=== PATIENT | female | born 1960 | race Caucasian/White ===

== ENCOUNTER 2017-01-04 09:07 | Outpatient (CLI) ==
[2017-01-04 09:37] LABS: BASOPHILS # (AUTO) 0.1 K/uL (0-0.2); BASOPHILS % (AUTO) 0.7 % (0.0-3.0); EOSINOPHILS # (AUTO) 0.4 K/ul (0.0-0.7); EOSINOPHILS % (AUTO) 4.5 % (0.0-7.0); HEMATOCRIT 43.8 % (37.0-47.0); HEMOGLOBIN 14.8 g/dl (12.0-16.0); IMMATURE GRANULOCYTE % (AUTO) 0.2 % (0.0-5.0); LYMPHOCYTES # (AUTO) 3.4 K/uL (0.60-3.4); LYMPHOCYTES % (AUTO) 39.8 (10.0-50.0); MEAN CORPUSCULAR HEMOGLOBIN 29.4 pg (27.0-31.0); MEAN CORPUSCULAR HGB CONC 33.8 (31.8-35.4); MEAN CORPUSCULAR VOLUME 87.1 fl (81.0-99.0); MONOCYTES # (AUTO) 0.5 K/uL (0.4-2.0); NEUTROPHILS # (AUTO) 4.2 K/ul (2.0-6.9); NEUTROPHILS % (AUTO) 48.8; PLATELET COUNT 323 10^3/uL (140-440); RED BLOOD COUNT 5.03 10^6/ul (4.20-5.40); WHITE BLOOD COUNT 8.52 K/ul (4.6-10.2)
--- NOTE | 2017-01-04 09:45 | DI ---
EXAM: Three views of the left ribs HISTORY: Left rib pain. COMPARISON: Chest x-ray 04/17/2011 FINDINGS: There is no lytic or blastic lesion of the left ribs. There is no cortical irregularity o r displaced fracture. There are surgical clips in right upper quadrant infusion hardware in the cer vical spine. The lungs are clear. IMPRESSION: No acute abnormality or displaced fracture of the left ribs.
[2017-01-04 10:14] LABS: ALBUMIN 3.8 g/dL (3.4-5.0); ALBUMIN/GLOBULIN RATIO 0.93; ANION GAP 12.8; BILIRUBIN,TOTAL 0.56 mg/dL (0.00-1.20); BUN/CREATININE RATIO 18.62; CALCIUM 9.8 mg/dL (8.2-10.2); CHOL/HDL RATIO 2.4 (4.5-5.5); CREATININE 1.02 mg/dL (0.60-1.30); POTASSIUM 3.8 mmol/L (3.5-5.10); TOTAL PROTEIN 7.9 g/dL (6.4-8.2)
== END 2017-01-04 09:08 | disposition home or self-care (01) ==
LOC: RAD 09:07
PROVIDERS: ATTEND Emergency Medicine
DX: E78.5 Hyperlipidemia, unspecified (principal); I10 Essential (primary) hypertension; F41.1 Generalized anxiety disorder; R07.81 Pleurodynia
CPT/HCPCS: 36415; 80053; 80061; 84443; 85025

== ENCOUNTER 2017-12-08 10:37 | Outpatient (CLI) | END 2017-12-08 10:38 | disposition home or self-care (01) | LOC: LAB 10:37 | PROVIDERS: ATTEND Internal Medicine | DX: E78.5 Hyperlipidemia, unspecified (principal); I10 Essential (primary) hypertension; F32.9 Major depressive disorder, single episode, unspecified | CPT/HCPCS: 36415; 80053; 80061; 83036; 84443; 85025 ==

== ENCOUNTER 2018-04-25 08:43 | Outpatient (CLI) ==
--- NOTE | 2018-04-25 09:16 | DI ---
EXAM: Two views of the chest. History: Cough. Comparison: Chest radiograph 07/11/2015 Findings: Heart size is normal. Mild left lower lobe infiltrate. No appreciable pleural fluid and n o pneumothorax. No acute osseous abnormalities. Postsurgical changes of the cervical spine. Impression: Mild left lower lobe infiltrate
--- NOTE | 2018-04-26 09:22 | MAMMO ---
EXAM: Bilateral digital screening mammogram (2-D and 3-D) History: Screening Comparison: Bilateral mammogram 09/06/2014 Findings: MLO and CC views of bilateral breasts demonstrate scattered fibroglandular breast parenchy ma. CAD was reviewed by the radiologist. Tomosynthesis was performed. Stable benign bilateral axil luis alfredo lymph nodes. There is an area of architectural distortion within the upper-outer quadrant of the right breast best seen on tomosynthesis. No suspicious microcalcifications. Impression: Indeterminate area of architectural distortion in the upper-outer quadrant of the right breast. Recommend further evaluation with spot compression views with tomosynthesis and possible ult rasound. BIRADS 0
== END 2018-04-25 08:44 | disposition home or self-care (01) ==
LOC: RAD 08:43
PROVIDERS: ATTEND Internal Medicine
DX: Z12.31 Encounter for screening mammogram for malignant neoplasm of breast (principal); R05 Cough
CPT/HCPCS: 77067

== ENCOUNTER 2018-05-03 09:51 | Outpatient (CLI) ==
--- NOTE | 2018-05-03 10:59 | MAMMO ---
EXAM: Digital diagnostic mammogram with tomosynthesis HISTORY: Abnormal mammogram COMPARISON: 04/25/2018 FINDINGS: Digital spot compression MLO and CC views of the right breast were performed. Tomosynth esis was performed. There are scattered fibroglandular densities. There is no evidence for mass, asy mmetry, distortion, or suspicious calcifications in the right breast. IMPRESSION: 1. No evidence of malignancy in the right breast. 2. Annual screening mammogram is recommended in one year. BIRADS category 1, negative examination
== END 2018-05-03 09:52 | disposition home or self-care (01) ==
LOC: RAD 09:51
PROVIDERS: ATTEND Internal Medicine
DX: R92.8 Other abnormal and inconclusive findings on diagnostic imaging of breast (principal)

== ENCOUNTER 2023-05-01 19:58 | Inpatient (IN) ==
[2023-05-01 20:11] VITALS: BMI 25.2
[2023-05-01 20:32] LABS: BASOPHILS % (AUTO) 0.3 % (0.0-3.0); EOSINOPHILS # (AUTO) 0.1 K/ul (0.0-0.7); EOSINOPHILS % (AUTO) 0.4 % (0.0-7.0); HEMATOCRIT 44.4 % (37.0-47.0); HEMOGLOBIN 15.1 g/dl (12.0-16.0); IMMATURE GRANULOCYTE # (AUTO) 0.1 (0.0-1.0); IMMATURE GRANULOCYTE % (AUTO) 0.4 % (0.0-5.0); LYMPHOCYTES # (AUTO) 1.8 K/uL (0.60-3.4); LYMPHOCYTES % (AUTO) 13.5 (10.0-50.0); MEAN CORPUSCULAR HEMOGLOBIN 30.4 pg (27.0-31.0); MEAN CORPUSCULAR VOLUME 89.3 fl (81.0-99.0); MONOCYTES # (AUTO) 0.6 K/uL (0.4-2.0); MONOCYTES % (AUTO) 4.7 (0-10); NEUTROPHILS # (AUTO) 10.9 K/ul (2.0-6.9); NEUTROPHILS % (AUTO) 80.7 % (42.2-75.2); PLATELET COUNT 298 10^3/uL (140-440); RDW COEFFICIENT OF VARIATION 12.5 % (11.6-14.8); RED BLOOD COUNT 4.97 10^6/ul (4.20-5.40); WHITE BLOOD COUNT 13.49 K/ul (4.6-10.2)
[2023-05-01 20:39] LABS: ALANINE AMINOTRANSFERASE 235.3 U/L (0-35); ALBUMIN 4.69 g/dL (3.5-5.0); ALKALINE PHOSPHATASE 203.6 U/L (53-141); ASPARTATE AMINO TRANSFERASE 224.2 U/L (14-36); BILIRUBIN,TOTAL 1.04 mg/dL (0.2-1.3); BLOOD UREA NITROGEN 16.9 mg/dL (7-17); CALCIUM 9.64 mg/dL (8.4-10.2); CARBON DIOXIDE 26.3 mmol/L (22-30.0); CHLORIDE 101.5 mmol/L (98-107); CREATININE 0.81 mg/dL (0.60-1.30); GLUCOSE 123.9 mg/dL (74-106); POTASSIUM 4.01 mmol/L (3.5-5.1); SODIUM 134.5 mmol/L (134.5-145)
[2023-05-01] MEDS ORDERED: ASPIRIN CHEWABLE PO STA (20:42)
--- NOTE | 2023-05-01 20:42 | ED.PDOC ---
General ED Provider: Dr. KRISTA GREEN, Chief Complaint: Chest Pain Stated Complaint: Patient is a 62 yo F here for chest pain Patient arrives afebrile and vitally stable by POV with family Seen here yesterday for chest pain, negative cardiac work up, no PE, CTA chest shows RML opneumonia VS mass, given augmentin and azithromycin by Dr. Wilcox and PCP follow up for PET scan in three months Lesia reports she has no improvement Patihossein has outdated cardiac work up Last echo LVEF 60% in 202. No hx of ACS Non smoker Patient stable No falls, no injuires no recent surgeries. PCP Dr. Chao, Loop recorder palced this year by Dr. Gates Time Seen by Provider: 05/01/23 20:07 Information Source: Patient and Family Primary Care Provider: TEJAS CHAO MD Nursing and Triage Documentation Reviewed and Agree: Yes Does patient meet sepsis criteria?: No System Inflammatory Response Syndrome: Not Applicable Sepsis Protocol: For patient's 13 years and over: Temp is 96.8 and below OR 101 and greater Pulse >90 BPM Resp >20/minute Acutely Altered Mental Status Are patient's symptoms suggestive of a new infection, such as: -Pneumonia -Skin, Soft Tissue -Endocarditis -UTI -Bone, Joint Infection -Implantable Device -Acute Abdominal Infection -Wound Infection -Meningitis -Blood Stream Catheter Infection -Unknown Review of Systems Review Of Systems Constitutional: Denies Chills, Diaphoresis, Fever or Malaise Eyes: Denies Blindness, Vision change or Drainage Ears, Nose, Mouth, Throat: Denies Ear pain, Ear discharge or Nose pain Respiratory: Denies Cough, Shortness of Breath or Stridor Cardiac: Reports Chest pain; Denies Irregular heart rate, Lightheadedness or Palpitations GI: Reports Abdomen distended; Denies Blood streaked bowels or Constipated : Denies Burning, Dysuria or Discharge Musculoskeletal: Denies Back pain or Joint pain Skin: Denies Bruising or Change in color Neurological: Reports No symptoms Endocrine: Reports No symptoms Hematologic/Lymphatic: Reports No symptoms All Other Systems: Reviewed and Negative [facility] Medical History (Updated 05/01/23 @ 22:56 by SAE CAST RN) Adjacent segment disease of lumbar spine with history of fusion procedure M51.36 - Other intervertebral disc degeneration, lumbar region (ICD-10) Z98.1 - Arthrodesis status (ICD-10) Fibromyalgia M79.7 - Fibromyalgia (ICD-10) Hx of migraine headaches Z86.69 - Personal history of other diseases of the nervous system and sense organs (ICD-10) Implantable loop recorder present Z95.818 - Presence of other cardiac implants and grafts (ICD-10) Palpitations R00.2 - Palpitations (ICD-10) Family History FATHER Healthy male adolescent Mother Dementia Social History Smoking and tobacco status: Former smoker Tobacco: How many years used: 18 Alcohol intake: current Alcohol intake frequency: holidays/special occasions only Substance use type: does not use Tonia/druze: MORAVIAN Special tonia needs: No Agree to transfusion: Yes Adopted: No Foster care: No Household members: none Housing: apartment Marital status: S SINGLE Lives independently: Yes Number of children: 5 service: No Current occupational status: employed Current occupation: [employer] History of recent travel: No Sexually active: No Do you think of yourself as: straight/heterosexual Current gender identity: female Seatbelt use: always Drives intoxicated or rides with intoxicated local company hazmat driver: No Water heater temperature set < 120 degrees: Yes Working smoke detector in home: Yes Fire extinguisher in home: Yes Carbon monoxide detector in home: Yes Firearms in home: No Surgical History Deformity, chest wall, 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 - Other congenital deformities of chest (ICD-10) Endometriosis determined by laparoscopy N80.9 - Endometriosis, unspecified (ICD-10) H/O total hysterectomy Z90.710 - Acquired absence of both cervix and uterus (ICD-10) History of Z98.891 - History of uterine scar from previous surgery (ICD-10) History of dilatation and curettage Z98.890 - Other specified postprocedural states (ICD-10) S/P cholecystectomy Z90.49 - Acquired absence of other specified parts of digestive tract (ICD- 10) Tubal ectopic O00.109 - Unspecified tubal without intrauterine (ICD- 10) Female Reproductive History Menstrual Hx Hysterectomy: Yes Hx Tubal Ligation: No Physical Exam Physical Exam Appearance: Reports Well-appearing, No pain distress and Well-nourished Ill-appearing: Not Applicable Pain Distress: Mild Eyes: Reports SUSHILA, EOMI and Conjunctiva clear ENT: Reports Ears normal, Nose normal and Oropharynx normal Neck: Supple Respiratory: Reports Airway patent and Breath sounds clear; Denies Wheezes or Retractions Cardiovascular: Reports RRR and Pulses normal; Denies No rub GI/: Reports Soft and Nontender; Denies Tender Musculoskeletal: Reports Normal strength, ROM intact and No edema Skin: Reports Warm, Dry and Normal color Neurological: Reports Sensation intact and Motor intact Psychiatric: Reports Affect appropriate and Mood appropriate Interpretation EKG Interpretation EKG Interpretation By: ED Physician Time of EKG #1: 20:18 Rate: Normal Rhythm: Sinus Ectopy: None [place]: NL ST Segment: Normal Interpretation: NSR rate 74, no stemi, no qt prolongation Critical Care Note Critical Care Note Total Critical Care Time (mins): 0 Course Course 05/01/23 20:25 05/01/23 20:25 Orders, Labs, Meds: Lab Review 05/01/23 05/01/23 05/01/23 19:10 19:25 20:25 WBC 13.49 H RBC 4.97 Hgb 15.1 Hct 44.4 MCV 89.3 MCH 30.4 MCHC 34.0 RDW Coeff of Santana 12.5 Plt Count 298 Immature Gran % (Auto) 0.4 Neut % (Auto) 80.7 H Lymph % (Auto) 13.5 [place] % (Auto) 4.7 Eos % (Auto) 0.4 Baso % (Auto) 0.3 Neut # (Auto) 10.9 H Lymph # (Auto) 1.8 [place] # (Auto) 0.6 Eos # (Auto) 0.1 Baso # (Auto) 0.0 Immature Gran # (Auto) 0.1 Sodium 134.5 Potassium 4.01 Chloride 101.5 Carbon Dioxide 26.3 Anion Gap 10.71 BUN 16.9 Creatinine 0.81 Estimated GFR (MDRD) 72.00 BUN/Creatinine Ratio 20.86 Glucose 123.9 H Lactic Acid 1.02 Calcium 9.64 Total Bilirubin 1.04 AST 224.2 H D ALT 235.3 H D Alkaline Phosphatase 203.6 H D Troponin I < 0.012 Total Protein 8.10 Albumin 4.69 Globulin 3.41 Albumin/Globulin Ratio 1.37 Plasma/Serum Alcohol < 10.0 Orders Category Date Time Status OBSERVATION [PLACE PATIENT OBSERVATION] .TO MEDSURG ADMISSION 05/01/23 22:18 Active (MONITORED BED) EKG-(ED ONLY) Stat CARDIO 05/01/23 20:03 Completed NPO REMINDER: IMAGING ONCE CARE 05/01/23 21:12 Active TELEMETRY MONITORING TELE CARE 05/01/23 22:18 Active CODE [ED CODE STATUS] .ONCE EMERGENCY 05/01/23 22:18 Active CBC W/ AUTO DIFF Stat LAB 05/01/23 20:25 Completed CBC W/ AUTO DIFF Timed LAB 05/02/23 06:00 Ordered CMP [COMPREHENSIVE METABOLIC PANEL] Timed LAB 05/02/23 06:00 Ordered COMPREHENSIVE METABOLIC PANEL Stat LAB 05/01/23 20:25 Completed ETOH LEVEL [BLOOD ALCOHOL] Stat LAB 05/01/23 19:10 Completed LACTIC ACID Stat LAB 05/01/23 19:25 Completed TROPONIN I Stat LAB 05/01/23 20:25 Completed Aspirin [Aspirin Chewable] Meds 05/01/23 20:42 Discontinued 324 mg PO ONCE STA Dicyclomine HCl [Bentyl] Meds 05/01/23 21:12 Discontinued 20 mg IM ONCE ONE Enoxaparin Sodium [Lovenox] Meds 05/01/23 22:14 Discontinued 40 mg SUBCUT ONCE ONE Ondansetron HCl/Pf [Zofran 4 mg/2 ml] Meds 05/01/23 22:16 Active 4 mg IVP 3-4XD PRN CT ABDOMEN/PELVIS W CONTRAST Stat RADS 05/01/23 21:12 Completed Medications Generic Name Dose Route Start Last Admin Trade Name Freq PRN Reason Stop Dose Admin Cyclobenzaprine HCl 10 mg 05/01/23 23:01 Cyclobenzaprine Hcl 10 Mg Tablet PO QAM PRN MUSCLE SPASMS Duloxetine HCl 60 mg 05/01/23 23:30 Duloxetine Hcl 30 Mg Capsule.Dr PO DAILY FELICITAS Lorazepam 1 mg 05/01/23 23:01 Lorazepam 1 Mg Tablet PO BID PRN Anxiety Metoprolol Succinate 50 mg 05/01/23 23:29 Metoprolol Succinate 50 Mg Tab.Er.24h PO DAILY [facility] Ondansetron HCl 4 mg 05/01/23 22:16 Ondansetron Hcl/Pf 4 Mg/2 Ml Sdv IVP 3-4XD PRN Nausea / Vomiting Promethazine HCl 25 mg 05/01/23 23:01 Promethazine Hcl 25 Mg Tablet PO Q6H PRN Nausea / Vomiting Discontinued Medications Generic Name Dose Route Start Last Admin Trade Name Roxana PRN Reason Stop Dose Admin Aspirin 324 mg 05/01/23 20:42 05/01/23 20:51 Aspirin 81 Mg Tab.Chew PO 05/01/23 20:43 324 mg ONCE STA Administration Dicyclomine HCl 20 mg 05/01/23 21:12 05/01/23 21:39 Dicyclomine Hcl 20 Mg/2 Ml Vial IM 05/01/23 21:13 20 mg ONCE ONE Administration Enoxaparin Sodium 40 mg 05/01/23 22:14 Enoxaparin Sodium 40 Mg/0.4 Ml Syr SUBCUT 05/01/23 22:15 ONCE ONE Lorazepam 1 mg 05/01/23 22:30 Lorazepam 1 Mg Tablet PO 05/01/23 22:31 ONCE STA Vital Signs: Temp Pulse Resp BP Pulse Ox 05/01/23 20:07 99.4 F 83 16 155/94 H 95 Unexpected transaminitis pending ct abd study, trial Bentyl, possible hepatic inflammation from recent Augmentin azithromycin course started yesterday MDM: Patient is a 62 yo F here for persistent chest pain Patient afebrile and vitally stable Patient seen here less than 24 hours ago, negative trop x2, similar ekg to previous, CTA chest shows no PE, RML mass vs pneumonia Exam reassuring Hx from patient chart review by me Consults to Dr. Chao - with repeat visit and no improvement will admit monitor and trend troponins, he will obs patient Patient amenable to plan Patient given aspirin She was requesting Dilaudid by name concerned for anxiety At this point I declined to give Dilaudid, it does not appear to be indicated WDX: Chest pain unknown etiology, leukocytosis, CAP, RML mass vs consolidation acute condition moderate complexity DDX: I considered ACS, PE, sepsis, but with recent negative work up these seem less likely SDOH: Patient has PCP and family support, will improve with observation All questions answered Patient placed on observation status EMILY Risk Score EMILY Risk Score: Risk Score Odds of by 30D 0 0.1 (0.1-0.2) 1 0.3 (0.2-0.3) 2 0.4 (0.3-0.5) 3 0.7 (0.6-0.9) 4 1.2 (1.0-1.5) 5 2.2 (1.9-2.6) 6 3.0 (2.5-3.6) 7 4.8 (3.8-6.1) Discharge Plan Discharge Patient Disposition: PLACED OBSERVATION Discharge Problem: Chest pain of unknown etiology, Leukocytosis, Lung mass, Pneumonia, Hepatitis, Lung nodule Did you review [place] DISTRIBUTING CLERK for ALL controlled substances?: Not Applicable ED Provider: KRISTA GREEN Condition: Fair Physician Progress Note: []
[2023-05-01 21:08] LABS: TROPONIN I < 0.012 ng/ml (0.0000-0.120)
[2023-05-01] MEDS ORDERED: BENTYL IM ONE (21:12)
--- NOTE | 2023-05-01 22:02 | CT ---
EXAM: CT OF THE ABDOMEN AND PELVIS WITH IV CONTRAST. HISTORY: Transaminitis. Chest pain. Surgical history includes cholecystectomy. PROCEDURE: After the intravenous injection of contrast contiguous axial CT images of the abdomen and pelvis were obtained with coronal and sagittal reformats. All CT scans are performed using dose opt imization techniques as appropriate to a performed exam including the following: Automated exposure c ontrol, Adjustment of the mA and/or kV according to patient size, Use of iterative reconstruction mary hnique. Comparison: None. FINDINGS: There is minimal lingular consolidation. There is a 0.4 cm nodule in the left lung/lower l obe. The heart is enlarged. There is a small pericardial effusion measuring up to 0.6 cm AP. There is diffuse fatty infiltration of the liver. There is periportal edema extending into the hepatic hi lum. The gallbladder is surgically absent. The pancreas, spleen, adrenal glands and right kidney ar e normal in appearance. There is left renal cortical scarring. The abdominal aorta is normal in cricket earance. The appendix is normal in appearance. There is diverticulosis of the colon with no evidenc e of diverticulitis. No free fluid or free air in the abdomen or pelvis. The bladder is minimally f illed which limits the evaluation. The uterus is surgically absent. There are degenerative changes in the spine. Impression: Periportal edema as described. The differential diagnosis includes acute hepatitis. Diffuse fatty infiltration of the liver. Colonic diverticulosis without diverticulitis. Left renal cortical scarring. Small pericardial effusion as described. Cardiomegaly. Minimal lingular atelectasis and/or pneumonia. Left lung nodule as described. Please see Fleischner Society pulmonary nodule guidelines below for r ecommended follow-up: Solid nodules: Solitary nodule size: <6 mm. Low risk patient: no follow-up needed. High risk patients: optional CT at 12 months. Solitary nodule size: 6-8 mm. Low risk patient: follow-up CT at 6-12 months, then consider further f ollow-up CT at 18-24 months. High risk patient: initial follow-up CT at 6-12 months and then at 18-2 4 months if no change. Solitary nodule size: >8 mm. Either low or high risk patients: consider follow-up CT at 3 months, an d or CT-PET, and/or biopsy. Low risk patient: Minimal or absent history of smoking and/or other known risk factors. High risk patient: History of smoking or of other known risk factors (e.g. first degree relative with lung cancer, or exposure to asbestos, radon, uranium). All CT scans are performed using dose optimization techniques as appropriate to the performed exam an d include at least one of the following: Automated exposure control, adjustment of the mA and/or kV according t o size, and the use of iterative reconstruction technique.
[2023-05-01] MEDS ORDERED: LOVENOX SUBCUT ONE (22:14)
[2023-05-01] MEDS ORDERED: ZOFRAN 4 MG/2 ML IVP PRN (22:16)
[2023-05-01] MEDS ORDERED: ATIVAN PO STA (22:30)
[2023-05-01] MEDS ORDERED: FLEXERIL PO PRN (23:01)
[2023-05-01] MEDS ORDERED: PHENERGAN TAB PO PRN (23:01)
[2023-05-01] MEDS: TOPROL XL PO SCH (23:41)
[2023-05-01] MEDS: CYMBALTA PO SCH (23:41)
[2023-05-02 05:16] LABS: BASOPHILS % (AUTO) 0.2 % (0.0-3.0); EOSINOPHILS # (AUTO) 0.1 K/ul (0.0-0.7); EOSINOPHILS % (AUTO) 1.1 % (0.0-7.0); HEMATOCRIT 43.9 % (37.0-47.0); HEMOGLOBIN 14.9 g/dl (12.0-16.0); IMMATURE GRANULOCYTE % (AUTO) 0.2 % (0.0-5.0); LYMPHOCYTES # (AUTO) 3.4 K/uL (0.60-3.4); LYMPHOCYTES % (AUTO) 27.5 (10.0-50.0); MEAN CORPUSCULAR HEMOGLOBIN 29.7 pg (27.0-31.0); MEAN CORPUSCULAR HGB CONC 33.9 (31.8-35.4); MEAN CORPUSCULAR VOLUME 87.6 fl (81.0-99.0); MONOCYTES # (AUTO) 0.7 K/uL (0.4-2.0); MONOCYTES % (AUTO) 5.3 (0-10); NEUTROPHILS % (AUTO) 65.7 % (42.2-75.2); PLATELET COUNT 284 10^3/uL (140-440); RDW COEFFICIENT OF VARIATION 12.6 % (11.6-14.8); RED BLOOD COUNT 5.01 10^6/ul (4.20-5.40); WHITE BLOOD COUNT 12.17 K/ul (4.6-10.2)
[2023-05-02 05:39] LABS: ALANINE AMINOTRANSFERASE 215.4 U/L (0-35); ALBUMIN 4.53 g/dL (3.5-5.0); ASPARTATE AMINO TRANSFERASE 169.2 U/L (14-36); BILIRUBIN,TOTAL 0.95 mg/dL (0.2-1.3); CALCIUM 9.17 mg/dL (8.4-10.2); CARBON DIOXIDE 29.1 mmol/L (22-30.0); CHLORIDE 100.8 mmol/L (98-107); CREATININE 0.76 mg/dL (0.60-1.30); GLUCOSE 102.7 mg/dL (74-106); POTASSIUM 3.82 mmol/L (3.5-5.1); SODIUM 135.2 mmol/L (134.5-145); TOTAL PROTEIN 7.84 g/dL (6.3-8.2)
[2023-05-02] MEDS ORDERED: DECADRON IM ONE (08:43)
[2023-05-02] MEDS ORDERED: SODIUM CHLORIDE IVP SCH (09:00)
[2023-05-02] MEDS ORDERED: SODIUM CHLORIDE IV SCH (09:00)
[2023-05-02] MEDS ORDERED: PROTONIX IVP SCH (09:00)
[2023-05-02] MEDS ORDERED: PROTONIX IV IVP SCH (09:00)
[2023-05-02] MEDS ORDERED: PROTONIX IV SCH (09:00)
[2023-05-02] MEDS: ROCEPHIN 1 GM/50 ML D5W 1 GM/50 ML BAG IV SCH (09:29)
[2023-05-02] MEDS: SODIUM CHLORIDE 1,000 ML IV SCH ×4 (09:29→11:07)
[2023-05-02] MEDS: PROTONIX IV IVP SCH ×2 (09:30→20:47)
[2023-05-02] MEDS: CYMBALTA PO SCH (10:29)
[2023-05-02] MEDS: TOPROL XL PO SCH (10:29)
--- NOTE | 2023-05-02 10:30 | PCM.PROG ---
Attending Provider: ATTENDING PROVIDER: Dr. TEJAS PACHECO MD This patient is seen with Sonia Murphy, Nurse Practitioner. DATE OF SERVICE: 05/02/23 SUBJECTIVE: This 62 year old /WHITE F was hospitalized 05/01/23. The patient is lethargic. Has had some confused this morning. Initially came to ER with chest pain several days ago and cough. Chest x-ray was treated for density in the rig ht lobe. This ER admission, CT showed density infectious versus neoplastic. Liver enzymes initially were normal a few days ago. She is suddenly in acute liver failure. She is having abdominal pain and distention along with nausea and vomiting. WBC is elevated. She reports constant heaviness in chest in right upper quadrant and epigastric area. Also pain with deep breathing. REVIEW OF SYSTEMS: CONSTITUTIONAL: No night sweats. Lethargy. No fever or chills. Weakness. HEENT: Eyes: No visual changes. No eye pain. No eye discharge. ENT: No runny nose. No epistaxis. No sinus pain. No odynophagia. No congestion. RESPIRATORY: Cough, no congestion. No hemoptysis. No shortness of breath. Pain with breathing. CARDIOVASCULAR: No angina symptoms. No CHF symptoms. No atypical chest pain for CAD. No palpitations. No orthopnea.. GASTROINTESTINAL: Abdominal distention. Nausea and vomiting. No diarrhea or constipation. No hematemesis. No hematochezia. GENITOURINARY: No urgency. No frequency. No dysuria. No hematuria. No obstructive symptoms. No discharge. No pain. No significant abnormal bleeding. MUSCULOSKELETAL: No musculoskeletal pain; no joint swelling. NEUROLOGICAL: Awake, alert, oriented to time, place and person. No headache. No neck pain. No syncope. No seizures. No dizziness. PSYCHIATRIC: Not anxious. No depression. No suicidal thoughts. No homicidal thoughts. SKIN: No rash. No lesions. No wounds. ENDOCRINE: No unexplained weight loss. No weight gain. HEMATOLOGIC/LYMPHATIC: No anemia. No purpura. No petechiae. No prolonged or excessive bleeding. No palpable lymph nodes. PHYSICAL EXAMINATION: GENERAL: The patient is awake, alert and oriented to person and place, lying in bed in no distress. VITAL SIGNS: Temperature 98.1 F, Pulse 80, Respiratory Rate 18, BP 135/91, Pulse Ox 98% HEENT: Head normocephalic, atraumatic. Eyes: Extraocular muscles are intact. Pupils are equal, round and reactive to light and accommodation. Ears: No lesions. Nose appeared normal. Throat: No exudate or erythema. NECK: Supple. No JVD, no carotid bruit. No lymphadenopathy or thyromegaly. LUNGS: Diminished breath sounds. Clear to auscultation. Percussion note normal. Chest symmetrical. HEART: S1, S2, no S3. No murmurs. No cyanosis or clubbing. No ascites. Pulses: Dorsalis pedis and posterior tibial pulses +1 to +2 both sides. ABDOMEN: Abdominal distention with tenderness, epigastric and right upper quadrant. Soft. Non-tender. Bowel sounds active. No CVA tenderness. No mass felt. EXTREMITIES: No edema. Full range of motion of all extremities, equal. NEUROLOGIC: No focal deficit. Cranial nerves II through XII are grossly intact. No headache. No double vision. SKIN: Not dry. Intact. Turgor-normal. LYMPHATIC: No palpable lymph nodes/no lymphedema. MUSCULOSKELETAL: Normal joints with no swelling. Muscle tone is normal. LAB REVIEW: 05/02/23 05:03 05/02/23 05:03 05/02/23 05:03: WBC 12.17 H, RBC 5.01, Hgb 14.9, Hct 43.9, MCV 87.6, MCH 29.7, MCHC 33.9, RDW Coeff of Santana 12.6, Plt Count 284, Immature Gran % (Auto) 0.2, Neut % (Auto) 65.7, Lymph % (Auto) 27.5, [place] % (Auto) 5.3, Eos % (Auto) 1.1, Baso % (Auto) 0.2, Neut # (Auto) 8.0 H, Lymph # (Auto) 3.4, [place] # (Auto) 0.7, Eos # (Auto) 0.1, Baso # (Auto) 0.0, Immature Gran # (Auto) 0.0, Sodium 135.2, Potassium 3.82, Chloride 100.8, Carbon Dioxide 29.1, Anion Gap 9.12, BUN 15.0, Creatinine 0.76, Estimated GFR (MDRD) 77.00, BUN/Creatinine Ratio 19.73, Glucose 102.7, Calcium 9.17, Total Bilirubin 0.95, AST 169.2 H D, ALT 215.4 H, Alkaline Phosphatase 203.0 H, Total Protein 7.84, Albumin 4.53, Globulin 3.31, Albumin/Globulin Ratio 1.36 05/01/23 20:25: WBC 13.49 H, RBC 4.97, Hgb 15.1, Hct 44.4, MCV 89.3, MCH 30.4, MCHC 34.0, RDW Coeff of Santana 12.5, Plt Count 298, Immature Gran % (Auto) 0.4, Neut % (Auto) 80.7 H, Lymph % (Auto) 13.5, [place] % (Auto) 4.7, Eos % (Auto) 0.4, Baso % (Auto) 0.3, Neut # (Auto) 10.9 H, Lymph # (Auto) 1.8, [place] # (Auto) 0.6, Eos # (Auto) 0.1, Baso # (Auto) 0.0, Immature Gran # (Auto) 0.1, Sodium 134.5, Potassium 4.01, Chloride 101.5, Carbon Dioxide 26.3, Anion Gap 10.71, BUN 16.9, Creatinine 0.81, Estimated GFR (MDRD) 72.00, BUN/Creatinine Ratio 20.86, Glucose 123.9 H, Calcium 9.64, Total Bilirubin 1.04, AST 224.2 H D, ALT 235.3 H D, Alkal ine Phosphatase 203.6 H D, Troponin I < 0.012, Total Protein 8.10, Albumin 4.69, Globulin 3.41, Albumin/Globulin Ratio 1.37 05/01/23 19:25: Lactic Acid 1.02 05/01/23 19:10: Plasma/Serum Alcohol < 10.0 ASSESSMENT: Please see below. 1. Acute hepatitis 2. Abdominal pain 3. Nausea/vomiting 4. Right pulmonary nodule infection versus neoplastic 5. Atypical chest pain. PLAN: 1.Acute Hepatitis panel 2. Liver ultrasound 3. 1gram Rocephin daily 4. Protonix 40mg BID IV 5. Phenergan IV Q 6 hours PRN 6. Decadron 4mg IM today 7. PT INT 8. Normal saline IV at 50cc 9. Admit to inpatient Plan and coordination of the patient's care discussed in the presence of Brake Operator Helper and nurse. SCRIBED BY: MIKA EUBANKS, Cup Machine Operator scribed while in presence of service performed by Sonia Murphy APRN on 05/02/23 ([id number])
[2023-05-02] MEDS ORDERED: MYLANTA SUSP PO ONE (12:06)
--- NOTE | 2023-05-02 12:13 | US ---
EXAM: ULTRASOUND ABDOMEN LIMITED RIGHT UPPER QUADRANT HISTORY: Abdominal pain COMPARISON: CT 05/01/2023 TECHNIQUE: Limited ultrasound abdomen right upper quadrant was FINDINGS: Pancreas poorly visualized secondary bowel gas shadowing. Liver normal in size and echoge nicity. Portions of the liver obscured secondary to shadowing artifact. Main portal vein patent wit h normal direction of flow. Patient status post cholecystectomy. No biliary duct dilation with comm on bile duct measuring 0.5 cm. Right upper quadrant edema/stranding on CT appearing to be centered ar ound areas of hepatic arterial vasculature are not appreciated on ultrasound. IMPRESSION: 1. Right upper quadrant edema/stranding on CT appearing to be centered around areas of hepatic arter ial vasculature is not appreciated on ultrasound. Finding could be due to vasculitis or other vascul ar or other etiology with soft tissue not excluded. Correlation with CT angiography abdomen pelvis i s recommended. 2. Status post cholecystectomy. No biliary duct dilation.
--- NOTE | 2023-05-02 16:40 | CT ---
EXAM: CTA ABDOMEN AND PELVIS WITH AND WITHOUT CONTRAST HISTORY: Portal edema and abnormal hepatic artery TECHNIQUE: CT acquisition of the abdomen and pelvis from the lower thorax through the pelvis without intravenous contrast administration. CTA acquisition of the abdomen and pelvis with intravenous contr ast administration. 3D/MIP/VR images were performed. CT Dose Reduction Techniques Performed: Yes. COMPARISON: CT 05/01/2023 and ultrasound 05/02/2023 FINDINGS: For reference, stenoses are graded as: mild (<50%), moderate (51-69%), severe (70-94%), critical (95- 99%) VASCULAR: Aorta: No aneurysm or dissection. Common Iliac arteries: No significant stenosis. No aneurysm. Internal Iliac arteries: No significant stenosis. External Iliac arteries: No significant stenosis. Celiac artery: No significant stenosis. There is mild inflammation and/or edema surrounding the dist al hepatic artery as well as the bifurcation into the right left hepatic arteries. The vessels are p atent. Superior mesenteric artery: No significant stenosis. Inferior mesenteric artery: No significant stenosis. Left renal artery: No significant stenosis. There is a diminutive right superior renal artery. Norm al right inferior renal artery. Right renal artery: No significant stenosis. Limited venous system: Not well opacified due to phase of contrast. ABDOMEN/PELVIS: Liver: No mass. Normal morphology. There is hepatic steatosis. Biliary: Common duct is mildly distended measuring approximately 7.6 mm. No obstructing stone or mas s. Cholecystectomy. Pancreas: No duct dilation. No mass. Spleen: No mass. No splenomegaly. Adrenals: No mass. Kidneys: No mass, calculus, or hydronephrosis. GI Tract: No bowel dilation. No bowel wall thickening. There is colonic diverticulosis. Peritoneal Cavity: No ascites. Lymph Nodes: No lymphadenopathy. Pelvis: No free fluid. Bladder is normal. There has been hysterectomy. Bones/Soft Tissues: Osseous structures are unremarkable. Visualized abdominal wall soft tissues are w ithin normal limits. IMPRESSION: 1. No aortic aneurysm or dissection. Mild amount of edema surrounding the hepatic artery and bifurc ation. The right and left hepatic arteries are patent. This could be secondary to edema from intrin sic hepatocellular disease or vasculitis. 2. No mesenteric arterial stenosis or occlusion. 3. Other details as described above compared to yesterday's exam are stable. All CT scans are performed using dose optimization techniques as appropriate to the performed exam an d include at least one of the following: Automated exposure control, adjustment of the mA and/or kV according t o size, and the use of iterative reconstruction technique.
[2023-05-02] MEDS: TORADOL IVP PRN (16:45)
[2023-05-02 17:13] LABS: BILIRUBIN,URINE Negative (NEGATIVE); CLARITY,URINE Clear (CLEAR); COLOR,URINE Dark (YELLOW); GLUCOSE, URINE (UA) Negative (NEGATIVE); KETONES,URINE Trace (NEGATIVE); LEUKOCYTE ESTERASE ,URINE Negative (NEGATIVE); NITRITE,URINE Negative (NEGATIVE); PROTEIN,URINE Negative (NEGATIVE); URINE, BLOOD 2+ (NEGATIVE)
[2023-05-02 17:16] LABS: BACTERIA,URINE TRACE (NOT PRESENT); SQUAMOUS EPITHELIAL CELL,UR 0-2 (0-5); URINE WBC, MICROSCOPIC 0-2 (0-2)
[2023-05-02] MEDS ORDERED: PHENERGAN 25 MG/ML VIAL ONE (20:31)
[2023-05-02] MEDS: PHENERGAN 25 MG/ML VIAL 25 MG in SODIUM CHLORIDE 50 ML IV PRN (20:47)
[2023-05-02] MEDS: ATIVAN PO PRN (20:50)
[2023-05-03 05:36] LABS: BASOPHILS % (AUTO) 0.4 % (0.0-3.0); EOSINOPHILS # (AUTO) 0.3 K/ul (0.0-0.7); HEMATOCRIT 40.9 % (37.0-47.0); HEMOGLOBIN 13.6 g/dl (12.0-16.0); IMMATURE GRANULOCYTE % (AUTO) 0.3 % (0.0-5.0); LYMPHOCYTES # (AUTO) 3.1 K/uL (0.60-3.4); LYMPHOCYTES % (AUTO) 34.6 (10.0-50.0); MEAN CORPUSCULAR HGB CONC 33.3 (31.8-35.4); MEAN CORPUSCULAR VOLUME 90.1 fl (81.0-99.0); MONOCYTES # (AUTO) 0.6 K/uL (0.4-2.0); MONOCYTES % (AUTO) 6.8 (0-10); NEUTROPHILS # (AUTO) 4.9 K/ul (2.0-6.9); NEUTROPHILS % (AUTO) 54.9 % (42.2-75.2); PLATELET COUNT 245 10^3/uL (140-440); RED BLOOD COUNT 4.54 10^6/ul (4.20-5.40); WHITE BLOOD COUNT 8.97 K/ul (4.6-10.2)
[2023-05-03 05:47] LABS: ALANINE AMINOTRANSFERASE 135.3 U/L (0-35); ALBUMIN 3.84 g/dL (3.5-5.0); ALKALINE PHOSPHATASE 149.7 U/L (53-141); ASPARTATE AMINO TRANSFERASE 64.7 U/L (14-36); BILIRUBIN,TOTAL 0.46 mg/dL (0.2-1.3); BLOOD UREA NITROGEN 17.8 mg/dL (7-17); CALCIUM 8.38 mg/dL (8.4-10.2); CARBON DIOXIDE 30.3 mmol/L (22-30.0); CHLORIDE 104.1 mmol/L (98-107); CREATININE 0.97 mg/dL (0.60-1.30); GLUCOSE 107.9 mg/dL (74-106); POTASSIUM 4.15 mmol/L (3.5-5.1); SODIUM 136.1 mmol/L (134.5-145); TOTAL PROTEIN 6.95 g/dL (6.3-8.2)
[2023-05-03] MEDS: SODIUM CHLORIDE 1,000 ML IV SCH (06:23)
[2023-05-03 08:29] LABS: HBsAgSCREEN Negative (Negative); HCV ANTIBODY Non Reactive (Non Reactive); HEP A AB, IgM Negative (Negative); HEP B CORE Ab, IgM Negative (Negative)
[2023-05-03] MEDS: CYMBALTA PO SCH (08:41)
[2023-05-03] MEDS: CARAFATE PO SCH ×4 (08:41→20:46)
[2023-05-03] MEDS: TOPROL XL PO SCH (08:41)
[2023-05-03] MEDS: PROTONIX IV IVP SCH ×2 (08:42→20:46)
--- NOTE | 2023-05-03 09:26 | PCM.PROG ---
Attending Provider: ATTENDING PROVIDER: Dr. TEJAS PACHECO MD This patient is seen with Sonia Murphy, Nurse Practitioner. DATE OF SERVICE: 05/03/23 SUBJECTIVE: This 62 year old /WHITE F was hospitalized 05/02/23. Complaining of mild nausea and chest discomfort. Chest discomfort is related to paracardial edema, seems to be noncardiac in nature. Still unable to eat, did rest through the night. Liver enzymes mildly decreased today REVIEW OF SYSTEMS: CONSTITUTIONAL: No night sweats. No fatigue, malaise, lethargy. No fever or chills. Weakness. HEENT: Eyes: No visual changes. No eye pain. No eye discharge. ENT: No runny nose. No epistaxis. No sinus pain. No odynophagia. No congestion. RESPIRATORY: No cough, no congestion. No hemoptysis. No shortness of breath. CARDIOVASCULAR: No angina symptoms. No CHF symptoms. No atypical chest pain for CAD. No palpitations. No orthopnea.. GASTROINTESTINAL: Abdominal pain. Nausea. No diarrhea or constipation. No hematemesis. No hematochezia. GENITOURINARY: No urgency. No frequency. No dysuria. No hematuria. No obstructive symptoms. No discharge. No pain. No significant abnormal bleeding. MUSCULOSKELETAL: No musculoskeletal pain; no joint swelling. NEUROLOGICAL: Awake, alert, oriented to time, place and person. No headache. No neck pain. No syncope. No seizures. No dizziness. PSYCHIATRIC: Not anxious. No depression. No suicidal thoughts. No homicidal thoughts. SKIN: No rash. No lesions. No wounds. ENDOCRINE: No unexplained weight loss. No weight gain. HEMATOLOGIC/LYMPHATIC: No anemia. No purpura. No petechiae. No prolonged or excessive bleeding. No palpable lymph nodes. PHYSICAL EXAMINATION: GENERAL: The patient is awake, alert and oriented, sitting in bed in no distre ss. VITAL SIGNS: Temperature 97.2 F, Pulse 57, Respiratory Rate 16, BP 118/57, Pulse Ox 95% HEENT: Head normocephalic, atraumatic. Eyes: Extraocular muscles are intact. Pupils are equal, round and reactive to light and accommodation. Ears: No lesions. Nose appeared normal. Throat: No exudate or erythema. NECK: Supple. No JVD, no carotid bruit. No lymphadenopathy or thyromegaly. LUNGS: Diminished breath sounds. Clear to auscultation. Percussion note normal. Chest symmetrical. HEART: S1, S2, no S3. No murmurs. No cyanosis or clubbing. No ascites. Pulses: Dorsalis pedis and posterior tibial pulses +1 to +2 both sides. ABDOMEN: Mild abdominal distention. Soft. Mild tenderness epigastric right upper quadrant. Non-tender. Bowel sounds active. No CVA tenderness. No mass felt. EXTREMITIES: No edema. Full range of motion of all extremities, equal. NEUROLOGIC: No focal deficit. Cranial nerves II through XII are grossly intact. No headache. No double vision. SKIN: Not dry. Intact. Turgor-normal. LYMPHATIC: No palpable lymph nodes/no lymphedema. MUSCULOSKELETAL: Normal joints with no swelling. Muscle tone is normal. LAB REVIEW: 05/03/23 05:29 05/03/23 05:29 05/03/23 05:29: WBC 8.97, RBC 4.54, Hgb 13.6, Hct 40.9, MCV 90.1, MCH 30.0, MCHC 33.3, RDW Coeff of Santana 13.0, Plt Count 245, Immature Gran % (Auto) 0.3, Neut % (Auto) 54.9, Lymph % (Auto) 34.6, Carlton % (Auto) 6.8, Eos % (Auto) 3.0, Baso % (Auto) 0.4, Neut # (Auto) 4.9, Lymph # (Auto) 3.1, Carlton # (Auto) 0.6, Eos # (Auto) 0.3, Baso # (Auto) 0.0, Immature Gran # (Auto) 0.0, Sodium 136.1, Potass ium 4.15, Chloride 104.1, Carbon Dioxide 30.3 H, Anion Gap 5.85, BUN 17.8 H, Creatinine 0.97, Estimated GFR (MDRD) 58.00, BUN/Creatinine Ratio 18.35, Glucose 107.9 H, Calcium 8.38 L, Total Bilirubin 0.46, AST 64.7 H D, ALT 135.3 H D, Alk audie Phosphatase 149.7 H D, Total Protein 6.95, Albumin 3.84, Globulin 3.11, Albumin/Globulin Ratio 1.23 05/02/23 15:09: Urine Color Dark, Urine Clarity Clear, Urine pH 7.0, Ur Specific [place] 1.010, Urine Protein Negative, Urine Glucose (UA) Negative, Urine Ketones Trace H, Urine Blood 2+ H, Urine Nitrite Negative, Urine Bilirubin Negative, Urine Urobilinogen 1.0 H, Ur Leukocyte Esterase Negative, Urine Microscopic RBC 10-20, Urine Microscopic WBC 0-2, Ur Squamous Epith Cells 0-2, Urine Bacteria Trace 05/02/23 09:07: PT 10.0, INR 0.96 ASSESSMENT: Please see below. 1. Acute Hepatitis 2. Atypical chest pain 3. Dehydration 4. Nausea PLAN: 1. Carafate 1gram liquid QID AC 2. Urine culture 3. Continue IV fluids Plan and coordination of the patient's care discussed in the presence of Strand And Binder Controller and nurse. SCRIBED BY: En PEREZ scribed while in presence of service performed by Sonia Murphy APRN on 05/03/23 ([id number])
[2023-05-03] MEDS: ROCEPHIN 1 GM/50 ML D5W 1 GM/50 ML BAG IV SCH (09:40)
[2023-05-03] MEDS: TORADOL IVP PRN (17:08)
[2023-05-03] MEDS ORDERED: PHENERGAN 25 MG/ML VIAL ONE (20:19)
[2023-05-03] MEDS: PHENERGAN 25 MG/ML VIAL 25 MG in SODIUM CHLORIDE 50 ML IV PRN (20:45)
[2023-05-03] MEDS: ATIVAN PO PRN (20:46)
[2023-05-04] MEDS: SODIUM CHLORIDE 1,000 ML IV SCH ×2 (03:20→23:37)
[2023-05-04 05:46] LABS: BASOPHILS # (AUTO) 0.1 K/uL (0-0.2); BASOPHILS % (AUTO) 0.6 % (0.0-3.0); EOSINOPHILS # (AUTO) 0.4 K/ul (0.0-0.7); EOSINOPHILS % (AUTO) 4.7 % (0.0-7.0); HEMATOCRIT 38.2 % (37.0-47.0); HEMOGLOBIN 12.7 g/dl (12.0-16.0); IMMATURE GRANULOCYTE % (AUTO) 0.3 % (0.0-5.0); LYMPHOCYTES # (AUTO) 3.3 K/uL (0.60-3.4); LYMPHOCYTES % (AUTO) 41.7 (10.0-50.0); MEAN CORPUSCULAR HEMOGLOBIN 30.2 pg (27.0-31.0); MEAN CORPUSCULAR HGB CONC 33.2 (31.8-35.4); MEAN CORPUSCULAR VOLUME 90.7 fl (81.0-99.0); MONOCYTES # (AUTO) 0.5 K/uL (0.4-2.0); NEUTROPHILS # (AUTO) 3.7 K/ul (2.0-6.9); NEUTROPHILS % (AUTO) 46.7 % (42.2-75.2); PLATELET COUNT 237 10^3/uL (140-440); RDW COEFFICIENT OF VARIATION 13.1 % (11.6-14.8); RED BLOOD COUNT 4.21 10^6/ul (4.20-5.40); WHITE BLOOD COUNT 7.87 K/ul (4.6-10.2)
[2023-05-04 05:59] LABS: ALANINE AMINOTRANSFERASE 101.5 U/L (0-35); ALBUMIN 3.61 g/dL (3.5-5.0); ALKALINE PHOSPHATASE 152.1 U/L (53-141); ASPARTATE AMINO TRANSFERASE 63.7 U/L (14-36); BILIRUBIN,TOTAL 0.3 mg/dL (0.2-1.3); BLOOD UREA NITROGEN 17.1 mg/dL (7-17); CALCIUM 8.52 mg/dL (8.4-10.2); CARBON DIOXIDE 26.5 mmol/L (22-30.0); CHLORIDE 108.9 mmol/L (98-107); CREATININE 0.87 mg/dL (0.60-1.30); GLUCOSE 101.9 mg/dL (74-106); POTASSIUM 3.88 mmol/L (3.5-5.1); SODIUM 138.5 mmol/L (134.5-145); TOTAL PROTEIN 6.5 g/dL (6.3-8.2)
[2023-05-04] MEDS: CARAFATE PO SCH ×4 (06:06→21:35)
[2023-05-04] MEDS: CYMBALTA PO SCH (08:49)
[2023-05-04] MEDS: TOPROL XL PO SCH (08:50)
[2023-05-04] MEDS: ROCEPHIN 1 GM/50 ML D5W 1 GM/50 ML BAG IV SCH (08:50)
[2023-05-04] MEDS: PROTONIX IV IVP SCH ×2 (09:09→21:35)
[2023-05-04] MEDS: TORADOL IVP PRN (09:16)
[2023-05-04 14:53] LABS: ABG PH 7.49 (7.35-7.45); BEecf 1.8 (-2.0-3.0); HCO3 25.1 (21-28); MetHb 1.2 (0-1.5); TCO2 26.1 (19-24); sO2 97.5 % (94-98); tHb 12.5 g/dl (11.7-17.4)
[2023-05-04] MEDS: ATIVAN PO PRN (21:38)
[2023-05-04] MEDS ORDERED: PHENERGAN 25 MG/ML VIAL ONE (21:39)
[2023-05-04] MEDS: PHENERGAN 25 MG/ML VIAL 25 MG in SODIUM CHLORIDE 50 ML IV PRN (21:43)
[2023-05-04 21:59] VITALS: RESP 16
[2023-05-05 05:23] VITALS: BP 132/84; PULSE 70; TEMP 96.2
[2023-05-05 05:29] LABS: BASOPHILS # (AUTO) 0.1 K/uL (0-0.2); BASOPHILS % (AUTO) 0.5 % (0.0-3.0); EOSINOPHILS # (AUTO) 0.5 K/ul (0.0-0.7); EOSINOPHILS % (AUTO) 5.3 % (0.0-7.0); HEMATOCRIT 40.5 % (37.0-47.0); HEMOGLOBIN 13.5 g/dl (12.0-16.0); IMMATURE GRANULOCYTE % (AUTO) 0.1 % (0.0-5.0); LYMPHOCYTES # (AUTO) 2.9 K/uL (0.60-3.4); LYMPHOCYTES % (AUTO) 30.1 (10.0-50.0); MEAN CORPUSCULAR HEMOGLOBIN 29.9 pg (27.0-31.0); MEAN CORPUSCULAR HGB CONC 33.3 (31.8-35.4); MEAN CORPUSCULAR VOLUME 89.8 fl (81.0-99.0); MONOCYTES # (AUTO) 0.6 K/uL (0.4-2.0); MONOCYTES % (AUTO) 6.3 (0-10); NEUTROPHILS # (AUTO) 5.5 K/ul (2.0-6.9); NEUTROPHILS % (AUTO) 57.7 % (42.2-75.2); PLATELET COUNT 266 10^3/uL (140-440); RDW COEFFICIENT OF VARIATION 13.1 % (11.6-14.8); RED BLOOD COUNT 4.51 10^6/ul (4.20-5.40); WHITE BLOOD COUNT 9.46 K/ul (4.6-10.2)
[2023-05-05 05:46] LABS: ALANINE AMINOTRANSFERASE 102.4 U/L (0-35); ALBUMIN 4.19 g/dL (3.5-5.0); BILIRUBIN,TOTAL 0.43 mg/dL (0.2-1.3); BLOOD UREA NITROGEN 11.9 mg/dL (7-17); CALCIUM 8.91 mg/dL (8.4-10.2); CARBON DIOXIDE 29.1 mmol/L (22-30.0); CHLORIDE 106.3 mmol/L (98-107); CREATININE 0.91 mg/dL (0.60-1.30); GLUCOSE 99.6 mg/dL (74-106); POTASSIUM 3.72 mmol/L (3.5-5.1); SODIUM 138.6 mmol/L (134.5-145); TOTAL PROTEIN 7.53 g/dL (6.3-8.2)
[2023-05-05] MEDS: CARAFATE PO SCH ×2 (06:00→11:41)
[2023-05-05] MEDS: TOPROL XL PO SCH (08:58)
[2023-05-05] MEDS: TORADOL IVP PRN (08:58)
[2023-05-05] MEDS: PROTONIX IV IVP SCH (08:58)
[2023-05-05] MEDS: CYMBALTA PO SCH (08:58)
[2023-05-05] MEDS ORDERED: OMNICEF PO SCH (09:00)
--- NOTE | 2023-05-05 09:10 | PCM.PROG ---
Attending Provider: ATTENDING PROVIDER: Dr. TEJAS PACHECO MD This patient is seen with Sonia Murphy, Nurse Practitioner. DATE OF SERVICE: 05/05/23 SUBJECTIVE: This 62 year old /WHITE F was hospitalized 05/02/23. Has been eating 50-75% of meals. Still complaining of nausea. Has has bowel movement and up and about in the room walking. Liver has been consistently trending down. Plt Count normal. Chest discomfort likely due to pericardial edema creating pressure. Cardiac workup has been negative. The patient states she is ready to go home today. REVIEW OF SYSTEMS: CONSTITUTIONAL: No night sweats. Fatigue. No fever or chills. Weakness. HEENT: Eyes: No visual changes. No eye pain. No eye discharge. ENT: No runny nose. No epistaxis. No sinus pain. No odynophagia. No congestion. RESPIRATORY: No cough, no congestion. No hemoptysis. No shortness of breath. CARDIOVASCULAR: No angina symptoms. No CHF symptoms. No atypical chest pain for CAD. No palpitations. No orthopnea.. GASTROINTESTINAL: No abdominal pain. No nausea or vomiting. No diarrhea or const ipation. No hematemesis. No hematochezia. Epigastric pain. GENITOURINARY: No urgency. No frequency. No dysuria. No hematuria. No obstructive symptoms. No discharge. No pain. No significant abnormal bleeding. MUSCULOSKELETAL: No musculoskeletal pain; no joint swelling. Abdominal distention. NEUROLOGICAL: Awake, alert, oriented to time, place and person. No headache. No neck pain. No syncope. No seizures. No dizziness. PSYCHIATRIC: Not anxious. No depression. No suicidal thoughts. No homicidal thoughts. SKIN: No rash. No lesions. No wounds. ENDOCRINE: No unexplained weight loss. No weight gain. HEMATOLOGIC/LYMPHATIC: No anemia. No purpura. No petechiae. No prolonged or excessive bleeding. No palpable lymph nodes. PHYSICAL EXAMINATION: GENERAL: The patient is awake, alert and oriented, sitting in bed in no distress. VITAL SIGNS: Temperature 96.2 F, Pulse 70, Respiratory Rate 16, BP 132/84, Pulse Ox 95% HEENT: Head normocephalic, atraumatic. Eyes: Extraocular muscles are intact. Pupils are equal, round and reactive to light and accommodation. Ears: No lesions. Nose appeared normal. Throat: No exudate or erythema. NECK: Supple. No JVD, no carotid bruit. No lymphadenopathy or thyromegaly. LUNGS: Diminished breath sounds. Clear to auscultation. Percussion note normal. Chest symmetrical. HEART: S1, S2, no S3. No murmurs. No cyanosis or clubbing. No ascites. Pulses: Dorsalis pedis and posterior tibial pulses +1 to +2 both sides. ABDOMEN: Mild abdominal distention, Soft. Non-tender. Bowel sounds active. No CVA tenderness. No mass felt. EXTREMITIES: No edema. Full range of motion of all extremities, equal. NEUROLOGIC: No focal deficit. Cranial nerves II through XII are grossly intact. No headache. No double vision. SKIN: Not dry. Intact. Turgor-normal. LYMPHATIC: No palpable lymph nodes/no lymphedema. MUSCULOSKELETAL: Normal joints with no swelling. Muscle tone is normal. LAB REVIEW: 05/05/23 05:20 05/05/23 05:20 05/05/23 05:20: WBC 9.46, RBC 4.51, Hgb 13.5, Hct 40.5, MCV 89.8, MCH 29.9, MCHC 33.3, RDW Coeff of Santana 13.1, Plt Count 266, Immature Gran % (Auto) 0.1, Neut % (Auto) 57.7, Lymph % (Auto) 30.1, Harlan % (Auto) 6.3, Eos % (Auto) 5.3, Baso % (Auto) 0.5, Neut # (Auto) 5.5, Lymph # (Auto) 2.9, Harlan # (Auto) 0.6, Eos # (Auto) 0.5, Baso # (Auto) 0.1, Immature Gran # (Auto) 0.0, Sodium 138.6, Pot assium 3.72, Chloride 106.3, Carbon Dioxide 29.1, Anion Gap 6.92, BUN 11.9, Creatinine 0.91, Estimated GFR (MDRD) 63.00, BUN/Creatinine Ratio 13.07, Glucose 99.6, Calcium 8.91, Total Bilirubin 0.43, AST 51.0 H, ALT 102.4 H, Alkaline Phos phatase 173.0 H, Total Protein 7.53, Albumin 4.19, Globulin 3.34, Albumin/Globulin Ratio 1.25 05/04/23 14:15: Puncture Site Rrad, Base Excess 1.8, O2 Saturation 97.5, ABG pH 7.49 H, ABG pCO2 33.0 L, ABG pO2 88.0, ABG HCO3 25.1, ABG Total CO2 26.1 H, Fabiano Test Pos, Hemoglobin 1.2, Oxyhemoglobin 96.0, Carboxyhemoglobin 2.0 H, Total Hemoglobin 12.5 ASSESSMENT: Please see below. 1. Acute hepatitis, Hepatitis panel negative 2. Atypical chest pain 3. Right pulmonary nodule 4. Former smoker. PLAN: 1. Refer to pulmonology for sport on lung 2. Fractionated Alkaline Phosphatase 3. Discharge home 4. Phenergan Q 6 hours PRN #30 5. Protonix 40mg BID #30 6. Carafate 1 gram PO QHS 7. Followup in office next week. Plan and coordination of the patient's care discussed in the presence of Forestry Pilot and nurse. SCRIBED BY: MIKA EUBANKS Utility Lineman scribed while in presence of service performed by Sonia Murphy APRN on 05/05/23 ([id number])
--- NOTE | 2023-05-05 10:24 | ECHO2D ---
Date of Exam: 05/03/2023 Ordering Physician: DR. TEJAS PACHECO Room #: [id number] Reason for Echo: CHEST PAIN, SOA M-Mode Normal Adult Results LV Dimensions Normal Adult Results AoV Opening excursions >1.6 >1.6 LVEDD-base- 3.5-5.8 4.0 Ao root dimensions 2.0-3.7 3.3 LVESD-base- 3.1-4.6 L. Atrium dimensions 1.9-3.8 2.7 Post. Wall thickness 0.8-1.1 1.2 IV septum (thickness) 0.7-1.2 1.2 Post. Wall excursion 0.72-1.3 NORMAL Septal motion NORMAL Systolic motion R. Ventricular cavity 1.5-2.0 NORMAL LVEF 60% 69% Paradoxical septal wall motion NORMAL 2-D : 2-D M Mode Echocardiogram was performed using apical four chamber and left parasternal long and short axis views. Mitral, tricuspid and aortic valves appear to be normal. Contractility of the left ventricle seems to be normal, so is the cavity size. Left atrial cavity size and aortic root appear to be normal. There is no pericardial effusion. There is no thrombus noted in the left ventricle or left atrial cavity. M-MODE: MV: NORMAL AV: NORMAL TV: NORMAL PV: NORMAL CHAMBER SIZE: NORMAL WALL MOTION: NORMAL PERICARDIUM: NORMAL INTERPRETATION: 1. NORMAL 2 "D" "M" MODE ECHO MTDD
--- NOTE | 2023-05-05 16:23 | HP ---
DATE OF SERVICE: 05/02/23 REASON FOR HOSPITALIZATION: Chest pain Pneumonitis Acute hepatitis with periportal edema HISTORY OF PRESENT ILLNESS: 62 year old white female came to the emergency room on 04/30/23 with shortness of air and having right sided chest pain more on deep breathing. She was checked out and cardiac work up was negative. Patient was afebrile. It was decided that patient had more or less pleuritic type of pain with viral syndrome. Patient's liver profile at the time was negative. Patient was put on antibiotics and was discharged home. Patient's creatinine was 1.1, BUN 17, potassium was 4.2, WBC count was 10,000 with hemoglobin of 15. Patient returned to the emergency room on 05/01/23 with chest pain. On further work up the patient had pleuritic type of pain. CT showed possibility of right middle lobe pneumonia versus mass. Patient was started on Augmentin and Azithromycin. Patient was suppose to be followed up with CAT scan in three months. Patient's liver enzymes were noted to be abnormal on 05/01/23 with AST of 224, ALT of 235 with alkaline phosphatase of [address] scan of the abdomen showed periportal swelling, otherwise all negative except for mild pericardial effusion and cardiomegaly. Patient was put in the hospital. PAST MEDICAL/SURGICAL HISTORY: History of V-tach on Holter on January 2020 Patient has loop recorder Echo negative 01/17/20 History of migraine headache History of hypertension Dyslipidemia REVIEW OF SYSTEMS: CONSTITUTIONAL: Weakness and fatigue. HEENT: Eyes: No visual changes. No eye pain. No eye discharge. ENT: No runny nose. No epistaxis. No sinus pain. No sore throat. No odynophagia. No ear pain. No congestion. RESPIRATORY: Mild cough, Pleuritic type of pain. No hemoptysis. CARDIOVASCULAR: Chest pain more pleuritic right sided and also had some right upper quadrant discomfort. GASTROINTESTINAL: No nausea or vomiting. Appetite is not up to par. Some mild abdominal distress. GENITOURINARY: No urgency. No frequency. No dysuria. No hematuria. No obstructive symptoms. No discharge. No pain. No significant abnormal bleeding. MUSCULOSKELETAL: No musculoskeletal pain. No joint swelling. No arthritis. NEUROLOGICAL: No headache. No neck pain. No syncope. No seizures. No dizziness. PSYCHIATRIC: Not anxious. No depression. No suicidal thoughts. No homicidal thoughts. SKIN: No rash. No lesions. No wounds. ENDOCRINE: No unexplained weight loss. No weight gain. HEMATOLOGIC/LYMPHATIC: No anemia. No purpura. No petechiae. No prolonged or excessive bleeding. No palpable lymph nodes. PERSONAL/FAMILY/SOCIAL HISTORY: Patient is nonsmoker, no alcohol abuse. She is single. Patient is doing a job that is more than 40 hours and does all activity of daily living. She has never had a colonoscopy or bone density or mammogram; she had declined about all of those. MEDICATIONS: Metoprolol Duloxetine Cymbalta Lorazepam Promethazine Flexeril Amoxicillin Azithromycin ALLERGIES: STATINS, ZOFRAN AND STEROIDS PHYSICAL EXAMINATION: GENERAL: Oriented to time, place and person. VITAL SIGNS: Temperature 98, pulse 60, respiratory rate 16, blood pressure 128/70, pulse ox 95% on room air. HEENT: Head normocephalic, atraumatic. Eyes: Extraocular muscles are intact. Pupils are equal, round and reactive to light and accommodation. Ears: No lesions. Nose appeared normal. Throat: No exudate or erythema. NECK: Supple. LUNGS: Decreased breath sounds but clear. HEART: S1, S2, no S3. No murmur. ABDOMEN: Soft. Bowel sounds active. EXTREMITIES: No edema. Full range of motion of all extremities, equal. NEUROLOGIC: No focal deficit. Cranial nerves II through XII are grossly intact. No headache, no double vision or headache. SKIN: Not dry. Intact. Turgor - normal. LYMPHATIC: No palpable lymph nodes/no lymphedema. MUSCULOSKELETAL: Normal joints with no swelling. Muscle tone is normal. LABS: Hemoglobin 15.1, hematocrit 44, WBC 13,000, normal differential, total bilirubin 1, AST 224, ALT 235, alkaline phosphatase 203, creatinine 0.8, BUN 16, calcium normal, lactic acid normal. CT scan of the abdomen showed periportal edema. Chest x-ray was normal. CT of chest showed megaly and mild pericardiac effusion in the right lung with possibility of pneumonia. ASSESSMENT: 1. CHEST PAIN SEEMS TO BE NONCARDIAC, PLEURITIC, COULD BE RELATED TO PNEUMONITIS. 2. MASS NOTED ON THE CT SCAN, PET SCAN WILL BE DONE IN THREE MONTHS. 3. ACUTE HEPATITIS, LIVER ENZYMES. 4. HISTORY OF HEART ATTACK 2019, NOW ON LOOP RECORDER 5. MIGRAINE HEADACHES 6. HISTORY OF HYPERTENSION 7. HISTORY OF DYSLIPIDEMIA 8. FIBROMYALGIA PLAN: 1. Hospitalize patient. 2. Continue all medications. 3. Discontinue Azithromycin and other antibiotics. 4. Do echocardiogram to evaluate LV function and pericardial effusion 5. Continue routine telemetry orders with serial cardiac markers. 6. Do hepatitis profile. Condition: Stable. TIME SPENT: More than 75 minutes. MTDD
--- NOTE | 2023-05-05 16:26 | PN ---
DATE OF SERVICE: 05/03/23 SUBJECTIVE: Patient was seen and examined with the nurse practitioner. Patient's condition is stable. Her liver enzymes are slightly better. AST is 64 and ALT is 135. She is eating now with no nausea or vomiting. She is feeling better. Chest pain is a lot better. TIME SPENT: More than 35 minutes. Plan and coordination of the patient's care discussed in the presence of nurse. SAMMIE
--- NOTE | 2023-05-05 16:32 | PN ---
DATE OF SERVICE: 05/04/23 SUBJECTIVE: 62 year old white female hospitalized with chest pain, pneumonitis, acute hepatitis. Patient's condition has improved some. She is still fatigued and tired. She is coughing more and it is dry. REVIEW OF SYSTEMS: CONSTITUTIONAL: No night sweats. No fatigue, malaise, lethargy. No fever or chills. HEENT: Eyes: No visual changes. No eye pain. No eye discharge. ENT: No runny nose. No epistaxis. No sinus pain. No sore throat. No odynophagia. No congestion. RESPIRATORY: No cough, no congestion. No hemoptysis. No shortness of breath. CARDIOVASCULAR: No angina symptoms. No CHF symptoms. No atypical chest pain for CAD. No palpitations. No PND. No orthopnea. GASTROINTESTINAL: No abdominal pain. No nausea or vomiting. No diarrhea or constipation. No hematemesis. No hematochezia. GENITOURINARY: No urgency. No frequency. No dysuria. No hematuria. No obstructive symptoms. No discharge. No pain. No significant abnormal bleeding. MUSCULOSKELETAL: No musculoskeletal pain; no joint swelling. NEUROLOGICAL: No headache. No neck pain. No syncope. No seizures. No dizziness. PSYCHIATRIC: Not anxious. No depression. No suicidal thoughts. No homicidal thoughts. SKIN: No rash. No lesions. No wounds. ENDOCRINE: No unexplained weight loss. No weight gain. HEMATOLOGIC/LYMPHATIC: No anemia. No purpura. No petechiae. No prolonged or excessive bleeding. No palpable lymph nodes. PHYSICAL EXAMINATION: GENERAL: The patient is oriented to time, place and person. VITAL SIGNS: HEENT: Head normocephalic, atraumatic. Eyes: Extraocular muscles are intact. Pupils are equal, round and reactive to light and accommodation. Ears: No lesions. Nose appeared normal. Throat: No exudate or erythema. NECK: No JVD, no carotid bruit. . LUNGS: Mild expiratory wheeze. HEART: S1, S2, no S3. No distress. ABDOMEN: Soft. Bowel sounds active. EXTREMITIES: No edema. Full range of motion of all extremities, equal. NEUROLOGIC: No focal deficit. Cranial nerves II through XII are grossly intact. No headache. No double vision. SKIN: Not dry. Intact. Turgor - normal. LYMPHATIC: No palpable lymph nodes/no lymphedema. MUSCULOSKELETAL: Normal joints with no swelling. Muscle tone is normal. LABS: AST/ALT 101 and 63 respectively which is a little less than what it was before. No jaundice noted. Alkaline phosphatase is 150 and is going down now. Patient's hemoglobin is 12 and hematocrit 38 with WBC 7,000. Patient's condition seems to be improving clinically. Pneumonitis seems to be resolving. Condition: Stable . TIME SPENT: More than 35 minutes. Plan and coordination of the patient's care discussed in the presence of nurse. SAMMIE
[2023-05-09 14:11] LABS: ALKALINE PHOSPHATASE, S 191 IU/L (44-121); BONE FRACTION: 27 % (14-68); INTESTINAL FRAC.: 0 % (0-18); LIVER FRACTION: 73 % (18-85)
== END 2023-05-05 12:47 | disposition home or self-care (01) | DRG 441 ==
LOC: MEDSURG B 19:58 → ED 19:58 → MEDSURG B 22:46
PROVIDERS: ADMIT Internal Medicine; ATTEND Internal Medicine
DX: E86.0 Dehydration; R06.02 Shortness of breath; R91.1 Solitary pulmonary nodule; B17.9 Acute viral hepatitis, unspecified; J18.9 Pneumonia, unspecified organism; Z79.899 Other long term (current) drug therapy; D72.829 Elevated white blood cell count, unspecified